=== PATIENT | male | born 1950 | race Caucasian/White ===

== ENCOUNTER 2022-04-27 07:56 | Day surgery (SDC) | payer MEDICARE ==
[~2022-04-27] VITALS: Ht 177.8 cm; Wt 81.9 kg
[~2022-04-27 07:56] MED LIST: AMLOATOR PO; C COMPLEX1000 M1 PO; COLE625 PO; ESCI20 PO; EZET10 PO; Flagyl500 MG PO; GABA300 PO; HYDACE5325 PO; LEVFLO500 PO; MULVITA PO; NAPROXEN PO; Norco 10-325 T1 EACH PO; OMEPRAZOLE MAGN20 MG PO; OXYACE7.5T PO; PROP80ER PO; Percocet 5-3251 EACH PO; Prednisone20 MG PO; Primidone50 MG PO; RXOXYACE PO; TIZA4 PO; TRAM50 PO; TRAZ100 PO; Zofran Odt4 MG SL; [UNRECOGNIZED DRUG - REMARK]
--- NOTE | 2022-04-27 08:48 | NUR ---
History, Chart, Medications and Allergies reviewed before start of procedure.Patient confirms NPO status and agrees with scheduled surgery. Pre-Op teaching done. Pt verbalizes understanding. Patient States Post-Procedure ride home has been arranged.
--- NOTE | 2022-04-27 12:24 | NUR ---
DENIES PAIN, N/V, DRESSING CDI, REQUESTING JUICE AND CRACKERS
--- NOTE | 2022-04-27 12:57 | NUR ---
PATIENT UP TO BR, STEADY GAIT, ABLE TO VOID W/O DIFFICULTY, D/C INSTRUCTIONS REVIEWED, MEDICATED FOR DULL ACHE AT INCISION SITE. NOW ON RA. BIOX 100%. Discharge instructions reviewed with patient. Patient verbalizes understanding. Copy given to patient to take home. Patient States Post-Procedure ride home has been arranged WITH [facility].
--- NOTE | 2022-04-27 13:12 | NUR ---
Discharged via wheelchair to private car for ride home. TOLERATED APPLE JUICE AND CRACKERS. IV D/C'D.
--- NOTE | 2022-04-27 13:13 | NUR ---
PATIENT WAS MEDICATED FOR PAIN
--- NOTE | 2022-04-28 10:47 | NUR ---
04/28/22 1047 [place] VERIFICATIONS: EDIT CHART.
== END 2022-04-27 13:16 | disposition home or self-care (01) ==
LOC: ORSCMMR 07:56 → ORD 09:15 → ORSCMMR 13:16
PROVIDERS: Surgery
PROC: 0YU60JZ Supplement Left Inguinal Region with Synthetic Substitute, Open Approach (ICD-10-PCS; principal; 2022-04-27 09:15)
DX: K40.90 Unilateral inguinal hernia, without obstruction or gangrene, not specified as recurrent (principal); I10 Essential (primary) hypertension; K21.9 Gastro-esophageal reflux disease without esophagitis; Z79.899 Other long term (current) drug therapy
CPT/HCPCS: A9270; C1781; J1100; J2250; J2405; J2704; J3010; J7120

== ENCOUNTER 2023-08-25 06:08 | Day surgery (SDC) | payer MEDICARE ==
[~2023-08-25] VITALS: Ht 172.7 cm; Wt 74.9 kg
[2023-08-25] VITALS (9 sets, daily range): BP systolic 158–179; BP diastolic 72–98
[~2023-08-25 06:08] MED LIST changes: +Amlodipine-Ben1 EAC1 PO; +[UNRECOGNIZED DRUG - CODE] PO
[2023-08-25] MEDS ORDERED: ACET500 (06:58)
--- NOTE | 2023-08-25 07:17 | NUR ---
Ambulatory in Day SurgeryPre-Op teaching done. Pt verbalizes understanding. History, Chart, Medications and Allergies reviewed before start of procedure.Patient confirms NPO status and agrees with scheduled surgery. Patient States Post-Procedure ride home has been arranged.
--- NOTE | 2023-08-25 10:11 | NUR ---
PT'S PULSE OX READING HR 0F 35-39 BPM. AUDIBLE HR IS 72-76 BPM BUT IRREGULAR. 3 LEAD EKG PLACED W/ HR OF 75 AND MULTIPLE PAC'S. STRIP REVIEWED W/ DR. BILLINGSLEY. MD STATES THAT HIS HR WAS THE SAME DURING SURGERY. OK TO D/C TO HOME. PT HAS NO S/S OF DIZZINESS OR FEELING LIKE HIS HR IS IRREGULAR. PT ENCOURAGED TO STAND AND AMBULATE SLOWLY AND TO REPORT HEART PALPITATIONS AND DIZZINESS TO MD IF IT BECOMES A PROBLEM. Patient up to Ambulate independently. Gait steady. Discharge instructions reviewed with patient. Patient verbalizes understanding. Copy given to patient to take home. Discharged via wheelchair to private car for ride home.
== END 2023-08-25 10:05 | disposition home or self-care (01) ==
LOC: ORSCMMR 06:08 → ORD 07:30 → ORSCMMR 07:30
PROVIDERS: Surgery
PROC: 0YU50JZ Supplement Right Inguinal Region with Synthetic Substitute, Open Approach (ICD-10-PCS; principal; 2023-08-25 07:30)
DX: K40.90 Unilateral inguinal hernia, without obstruction or gangrene, not specified as recurrent (principal); I10 Essential (primary) hypertension; Z79.899 Other long term (current) drug therapy
CPT/HCPCS: C1781; J1100; J1885; J2405; J2704; J3010; J7120